=== PATIENT | female | born 1945 | race Caucasian/White ===

== ENCOUNTER 2017-12-16 05:26 | Inpatient (IN) | payer MEDICARE, OTHER ==
[~2017-12-16] VITALS: Ht 176.5 cm; Wt 100.0 kg
[~2017-12-16 05:26] MED LIST: LOVA20 PO
[2017-12-16] MEDS ORDERED: RINGERS SOLUTION,LACTATED 1,000 ML IV ONE ×4 (05:45→08:10)
[2017-12-16] MEDS ORDERED: CeFAZolin 2 GM/DEXTROSE 50 ML IV ONE ×2 (05:45→07:30)
[2017-12-16] MEDS ORDERED: SODIUM CL IRRIG SOLN BAG 0 ML IRRIG ONE (06:46)
[2017-12-16] MEDS ORDERED: BUPIVACAINE HCL/PF 0.25% 30 ML VIAL ONE (07:01)
[2017-12-16] MEDS ORDERED: BUPIVACAINE LIPOSOME/PF 1.3%-13.3MG/ML SUSPENSION 20 ML VIAL INJ ONE (07:15)
[2017-12-16] MEDS ORDERED: MEPERIDINE HCL/PF 25 MG/0.5 ML AMP IVP PRN (07:15)
[2017-12-16] MEDS ORDERED: TRANEXAMIC ACID 1,000 MG in DEXTROSE 5%-WATER 50 ML IV ONE (07:30)
[2017-12-16] MEDS ORDERED: DIAZEPAM 5 MG TABLET PO PRN (08:30)
[2017-12-16] MEDS: ACETAMINOPHEN 1000 MG/ISO-OSM 100 ML IV SCH ×3 (08:30→23:47)
[2017-12-16] MEDS: CeFAZolin 2 GM/DEXTROSE 50 ML IV SCH ×3 (08:45→23:47)
[2017-12-16] MEDS ORDERED: ENOXAPARIN SODIUM 40 MG/0.4 ML PF SYRINGE SQ ONE (08:45)
[2017-12-16] MEDS ORDERED: FentaNYL CITRATE-PF 100 MCG/2 ML VIAL ONE ×2 (09:27→09:48)
[2017-12-16] MEDS: FentaNYL CITRATE-PF 100 MCG/2 ML VIAL IVP PRN ×3 (09:30→09:50)
[2017-12-16] MEDS ORDERED: HYDROmorphone 2 MG/ML SYRINGE ONE (09:42)
[2017-12-16] MEDS: HYDROmorphone 2 MG/ML SYRINGE IVP PRN ×7 (09:43→23:48)
[2017-12-16 10:35] VITALS: BP 148/89
[2017-12-16] MEDS ORDERED: SUCCINYLCHOLINE CHLORIDE 20 MG/ML 10 ML VIAL IVP ONE (12:00)
[2017-12-16] MEDS ORDERED: METOCLOPRAMIDE HCL 5 MG/ML 2 ML VIAL IVP ONE (12:00)
[2017-12-16] MEDS ORDERED: PROPOFOL 1% 20 ML VIAL IVP ONE (12:00)
[2017-12-16] MEDS ORDERED: ACETAMINOPHEN/ISO-OSM 1000 MG/100 ML BOTTLE IV ONE (12:00)
[2017-12-16] MEDS ORDERED: NEOSTIGMINE METHYLSULFATE 1 MG/ML 10 ML VIAL IVP ONE (12:00)
[2017-12-16] MEDS ORDERED: HYDROmorphone 2 MG/ML SYRINGE IVP ONE (12:00)
[2017-12-16] MEDS ORDERED: GLYCOPYRROLATE 0.2 MG/ML VIAL IM ONE (12:00)
[2017-12-16] MEDS ORDERED: MIDAZOLAM HCL 2 MG/2 ML VIAL IVP ONE (12:00)
[2017-12-16] MEDS ORDERED: LIDOCAINE HCL/PF 2% 5 ML SYRINGE IVP ONE (12:00)
[2017-12-16] MEDS ORDERED: FentaNYL CITRATE-PF 100 MCG/2 ML VIAL IVP ONE (12:00)
[2017-12-16] MEDS ORDERED: ONDANSETRON HCL 4 MG/2 ML VIAL IVP ONE (12:00)
[2017-12-16] MEDS ORDERED: DEXAMETHASONE SOD PHOS 4 MG/ML VIAL IVP ONE (12:00)
[2017-12-16] MEDS ORDERED: ROCURONIUM BROMIDE 10 MG/ML 5 ML VIAL IVP ONE (12:00)
[2017-12-16] MEDS: CYCLOBENZAPRINE HCL 10 MG TABLET PO SCH ×2 (15:10→20:14)
[2017-12-16 15:53] VITALS: BP 136/62
[2017-12-16 19:33] VITALS: BP 123/75
[2017-12-16] MEDS: ZOLPIDEM TARTRATE 5 MG TABLET PO SCH (20:19)
[2017-12-16 23:44] VITALS: BP 131/59
[2017-12-17] MEDS: HYDROmorphone 2 MG/ML SYRINGE IVP PRN (04:45)
[2017-12-17 04:51] VITALS: BP 136/60
[2017-12-17 07:28] VITALS: BP 119/55
[2017-12-17] MEDS: CYCLOBENZAPRINE HCL 10 MG TABLET PO SCH ×2 (08:11→19:54)
[2017-12-17] MEDS: OxyCODONE HCL/ACETAMINOPHEN 5-325 MG TABLET PO PRN ×4 (08:12→19:54)
[2017-12-17 11:06] VITALS: BP 130/55
[2017-12-17 14:42] VITALS: BP 131/59
[2017-12-17 19:40] VITALS: BP 148/73
[2017-12-17] MEDS: OXYGEN THERAPY IH SCH ×2 (19:48→20:00)
[2017-12-17] MEDS: ZOLPIDEM TARTRATE 5 MG TABLET PO SCH (19:55)
[2017-12-18] MEDS: OxyCODONE HCL/ACETAMINOPHEN 5-325 MG TABLET PO PRN ×4 (01:26→19:47)
[2017-12-18 04:01] VITALS: BP 132/65
[2017-12-18 07:09] VITALS: BP 143/77
[2017-12-18] MEDS: OXYGEN THERAPY IH SCH (08:00)
[2017-12-18] MEDS ORDERED: DIAZEPAM 5 MG TABLET PO PRN (08:30)
[2017-12-18] MEDS: CYCLOBENZAPRINE HCL 10 MG TABLET PO SCH ×2 (09:49→21:53)
[2017-12-18 11:16] VITALS: BP 133/74
[2017-12-18 15:23] VITALS: BP 130/66
[2017-12-18] MEDS ORDERED: ENOX40DI9 SQ (15:34)
[2017-12-18] MEDS ORDERED: PERCT10 PO (15:35)
[2017-12-18] MEDS ORDERED: CEPH500 PO (15:35)
[2017-12-18] MEDS ORDERED: LEVO250 PO (15:36)
[2017-12-18 19:28] VITALS: BP 118/63
[2017-12-18] MEDS: ZOLPIDEM TARTRATE 5 MG TABLET PO SCH (19:47)
[2017-12-19 04:56] VITALS: BP 138/68
[2017-12-19] MEDS: OxyCODONE HCL/ACETAMINOPHEN 5-325 MG TABLET PO PRN ×2 (05:16→12:06)
[2017-12-19 07:50] VITALS: BP 124/67
[2017-12-19] MEDS: CYCLOBENZAPRINE HCL 10 MG TABLET PO SCH (08:45)
[2017-12-19 13:30] VITALS: BP 128/66
== END 2017-12-19 13:40 | DRG 494 ==
LOC: 4E 05:26
PROVIDERS: ADMIT Orthopaedic Surgery; ATTEND Orthopaedic Surgery
PROC: 0SPF04Z Removal of Internal Fixation Device from Right Ankle Joint, Open Approach (ICD-10-PCS; 2017-12-16)
PROC: BQ1G1ZZ Fluoroscopy of Right Ankle using Low Osmolar Contrast (ICD-10-PCS; 2017-12-16)
PROC: 0SGF04Z Fusion of Right Ankle Joint with Internal Fixation Device, Open Approach (ICD-10-PCS; principal; 2017-12-16 07:30)
DX: M96.0 Pseudarthrosis after fusion or arthrodesis (principal); M19.071 Primary osteoarthritis, right ankle and foot; Z88.2 Allergy status to sulfonamides; Z99.3 Dependence on wheelchair
CPT/HCPCS: 87081; 88300; 93005; 97110; 97112; 97116; 97162; 97165; 97530; 97535; C9290; J0131; J0330; J0690; J1100; J1170; J1650; J2250; J2405; J2704; J2765; J3010; J3490; J7060; J7120